=== PATIENT | male | born 1975 | race Caucasian/White ===

== ENCOUNTER → 2022-02-10 16:03 | Outpatient (CLI) | payer OTHER, SELFPAY ==
--- NOTE | 2022-02-10 | DI.MRI.S_ITS ---
PROCEDURE: MR SHOULDER RT WO CON INDICATIONS: RIGHT SHOULDER INJURY TECHNIQUE: Noncontrast oblique coronal T2 fast spin echo with fat saturation, oblique sagittal T1 spin echo and T2 fast spin echo with fat saturation, axial T1 spin echo and T2 fast spin echo with fat saturation through the shoulder. COMPARISON: None. FINDINGS: Image quality: Excellent. Rotator cuff: There is mild T2 signal elevation throughout the supraspinatus and infraspinatus tendons at the humeral insertion sites extending to the musculotendinous junction, indicating tendinopathy. Low-grade partial-thickness intrasubstance and bursal surface tears of the anterior, mid, and posterior supraspinatus as well as the mid and anterior infraspinatus tendons at the humeral insertion sites extending to the musculotendinous junction. Subscapularis and teres minor tendons are intact. Bones and bursae: No bone marrow contusions or fractures. Severe acromioclavicular joint degeneration. The acromion demonstrates conventional anatomy, without an os acromiale. A small amount of subacromial-subdeltoid or subcoracoid bursal fluid is present. Capsule and soft tissues: Ill-defined high T2 signal intensity within the posterosuperior labrum is present. The long head of the biceps tendon demonstrates normal location and morphology. The rotator interval appears normal, without fibrosis. The coracohumeral ligament is normal in thickness. IMPRESSION: 1. Supraspinatus and infraspinatus tendinopathy. Superimposed low-grade partial-thickness tears. No full-thickness rotator cuff tear. 2. Acromioclavicular joint osteoarthritis. 3. Possible posterosuperior glenoid labral tearing. Dictated by: Giuseppe Stratton M.D. on 02/10/2022 at 16:43 Approved by: Giuseppe Stratton M.D. on 02/10/2022 at 16:59
== END ==
PROVIDERS: PCP Student in an Organized Health Care Education/Training Program; Referring Provider Student in an Organized Health Care Education/Training Program; Visit Provider Student in an Organized Health Care Education/Training Program
DX: S46.011A Strain of muscle(s) and tendon(s) of the rotator cuff of right shoulder, initial encounter (principal); M19.011 Primary osteoarthritis, right shoulder
CPT/HCPCS: 73221